=== PATIENT | female | born 1995 | race Caucasian/White ===

== ENCOUNTER 2016-12-10 20:39 | Emergency (ER) | payer OTHER ==
[~2016-12-10] VITALS: Ht 160 cm; Wt 59.2 kg
[2016-12-10 20:44] VITALS: TEMP 36.9; Ht 160 cm; Wt 59.2 kg
[2016-12-10] MEDS ORDERED: PEDICHW53 PO (21:09)
--- NOTE | 2016-12-10 21:55 | DIAGNOSTIC IMAGING REPORT ---
HEAD WITHOUT CONTRAST (CT) CLINICAL HISTORY: 21 years-old Female with visual changes nausea dizziness. Acute nausea TECHNIQUE: Multiple axial CT images of the head were obtained without contrast. A dose lowering technique was utilized adhering to the principles of ALARA. CT DOSE: 537.48 mGy.cm COMPARISON: None. FINDINGS: No acute intracranial hemorrhage, midline shift, mass, large territorial ischemia or abnormal extra-axial collection. The calvarium is intact. The paranasal sinuses, mastoid air cells, and middle ear cavities are clear. IMPRESSION: No acute intracranial abnormality. The above report was generated using voice recognition software. It may contain grammatical, syntax or spelling errors. Electronically signed by: Gonzalez Clemons M.D. 12/10/2016 9:54 PM Dictated Date/Time: 12/10/2016 9:52 PM
--- NOTE | 2016-12-10 22:09 | EMERGENCY ROOM VISIT NOTE ---
History First contact with patient: 21:04 Chief Complaint: DIZZY Stated Complaint: LIGHTHEADED,VISION CHANGE,DIZZY Nursing Triage Summary: PT states "I have been feeling weird since this am. during an exam this am, I had some changes in my vision" PT reports dizziness and nausea. History of Present Illness The patient is a 21 year old female who presents to the Emergency Room with complaints of feeling slightly lightheaded and visual changes that occurred this morning during an exam. The patient says that her vision temporarily turned approximately 90. This lasted a few seconds, then resolved. She describes a lightheaded sensation as feeling "spacey." She denies any headache. She did feel nauseated earlier today. She had a similar episode at dinner with feeling spacey. She denies any visual disturbances at that time. She otherwise has been feeling well. No recent illnesses. No new medications. No history of migraines. Review of Systems 10 system review performed and negative unless noted in HPI or below Past Medical/Surgical History Otherwise healthy Social History Smoking Status: Never Smoker Alcohol Use: occasionally Occupation Status: [employer] student Current/Historical Medications Scheduled Pediatric Multiple Vitamin W/ (Flintstones Gummies), 2 TABS PO DAILY Allergies Coded Allergies: No Known Allergies (Unverified , 12/10/16) Physical Exam Vital Signs Date Time Temp Pulse Resp B/P (MAP) Pulse Ox O2 Delivery O2 Flow Rate FiO2 12/10/16 22:44 69 16 110/70 98 Room Air 12/10/16 21:30 95 129/84 98 Room Air 96 123/78 80 132/78 12/10/16 20:44 36.9 74 18 132/72 99 Room Air Physical Exam VITALS: Vitals are noted on the nurse's note and reviewed by myself. Vital signs stable. GENERAL: 21-year-old female, in no acute distress, nondiaphoretic, well- developed well-nourished. SKIN: The skin was without rashes, erythema, edema, or bruising. HEAD: Normocephalic atraumatic. EYES: Pupils equal round and reactive to light and accommodation. Conjunctivae without injection, sclerae without icterus. Extraocular movements intact. MOUTH: Mucous membranes moist. NECK: Supple without nuchal rigidity. No lymphadenopathy. Cervical spine is nontender. No JVD. HEART: Regular rate and rhythm without murmurs gallops or rubs. LUNGS: Clear to auscultation bilaterally without wheezes, rales or rhonchi. No accessory muscle use. ABDOMEN: Positive bowel sounds x 4.Soft, nontender, without organomegaly. No guarding or rebound tenderness. MUSCULOSKELETAL: No muscle atrophy, erythema, or edema noted. . Strength 5/5 throughout. NEURO: Patient was alert and oriented to person place and time. Normal sensation to touch. No focal neurological deficits. Medical Decision & Procedures ER Provider Diagnostic Interpretation: CT of the head IMPRESSION: No acute intracranial abnormality. The above report was generated using voice recognition software. It may contain grammatical, syntax or spelling errors. Electronically signed by: Gonzalez Clemons M.D. 12/10/2016 9:54 PM Laboratory Results 12/10/16 22:25 Red Blood Count 4.58, Mean Corpuscular Volume 85.8, Mean Corpuscular Hemoglobin 28.8, Mean Corpuscular Hemoglobin Concent 33.6, Mean Platelet Volume 9.3, Neutrophils (%) (Auto) 62.6, Lymphocytes (%) (Auto) 24.4, Monocytes (%) (Auto) 9.9, Eosinophils (%) (Auto) 2.1, Basophils (%) (Auto) 0.4, Neutrophils # (Auto) 8.80, Lymphocytes # (Auto) 3.43, Monocytes # (Auto) 1.39, Eosinophils # (Auto) 0.30, Basophils # (Auto) 0.05 12/10/16 22:25 Test 12/10/16 22:25 White Blood Count 14.06 K/uL (4.8-10.8) Red Blood Count 4.58 M/uL (4.2-5.4) Hemoglobin 13.2 g/dL (12.0-16.0) Hematocrit 39.3 % (37-47) Mean Corpuscular Volume 85.8 fL (80-100) Mean Corpuscular Hemoglobin 28.8 pg (25-34) Mean Corpuscular Hemoglobin Concent 33.6 g/dl (32-36) Platelet Count 274 K/uL (130-400) Mean Platelet Volume 9.3 fL (7.4-10.4) Neutrophils (%) (Auto) 62.6 % Lymphocytes (%) (Auto) 24.4 % Monocytes (%) (Auto) 9.9 % Eosinophils (%) (Auto) 2.1 % Basophils (%) (Auto) 0.4 % Neutrophils # (Auto) 8.80 K/uL (1.4-6.5) Lymphocytes # (Auto) 3.43 K/uL (1.2-3.4) Monocytes # (Auto) 1.39 K/uL (0.11-0.59) Eosinophils # (Auto) 0.30 K/uL (0-0.5) Basophils # (Auto) 0.05 K/uL (0-0.2) RDW Standard Deviation 44.9 fL (36.4-46.3) RDW Coefficient of Variation 14.5 % (11.5-14.5) Immature Granulocyte % (Auto) 0.6 % Immature Granulocyte # (Auto) 0.09 K/uL (0.00-0.02) Anion Gap 7.0 mmol/L (3-11) Est Creatinine Clear Calc Drug Dose 87.6 ml/min Estimated GFR () 115.1 Estimated GFR (Non- 99.4 BUN/Creatinine Ratio 14.9 (10-20) Calcium Level 9.4 mg/dl (8.5-10.1) Total Bilirubin 0.3 mg/dl (0.2-1) Aspartate Amino Transf (AST/SGOT) 17 U/L (15-37) Alanine Aminotransferase (ALT/SGPT) 21 U/L (12-78) Alkaline Phosphatase 88 U/L (45-117) Total Protein 8.2 gm/dl (6.4-8.2) Albumin 3.9 gm/dl (3.4-5.0) Globulin 4.3 gm/dl (2.5-4.0) Albumin/Globulin Ratio 0.9 (0.9-2) ED Course The patient was seen and examined She refuses blood work An EKG was performed and reviewed A CT of the head was performed and reviewed The findings were discussed with the patient. She is now agreeable to blood work. The workup was discussed with the patient. She voiced understanding. Discharge instructions were reviewed, and the patient was discharged in good condition Medical Decision Differential includes: Atypical migraine, intracranial mass, bleed, multiple sclerosis, Lyme disease This patient is a 21-year-old female that presents to the emergency department with complaints of a spacey feeling in addition to visual changes that occurred earlier this morning. The patient refused blood work. A CT of the head was negative. EKG shows normal sinus rhythm. She does not appear dehydrated. She is not orthostatic. It is possible that her symptoms are related to an atypical migraine. The patient does have leukocytosis. She does not have any infectious symptoms such as fever, chills, cough, or urinary symptoms. She was instructed to have close follow-up with [facility]. She also was instructed to have blood work rechecked to make sure that the leukocytosis is resolving. If the symptoms persist, I recommended that patient follow-up with a neurologist. She is in agreement with this plan, and was discharged in good condition This chart was completed in part utilizing [employer] Speech Voice Recognition software. Attempts were made to minimize the grammatical errors, random word insertions, pronoun errors and incomplete sentences. Any formal questions or concerns about the content, text or information contained within the body of this dictation should be directly addressed to the provider for clarification. Impression Primary Impression: Dizziness Departure Information Dispostion Home / Self-Care Condition GOOD Referrals No Doctor, Assigned (PCP) Patient Instructions My [facility] Additional Instructions You were evaluated in the emergency department for changes in vision and a lightheaded sensation. No abnormalities were noted on the CAT scan. Your white blood cells were noted to be elevated. This should be rechecked sometime in the next week. Please follow-up with [facility] within the next 2-3 days If the symptoms persist, you should see a specialist such as a neurologist. Please return to the emergency department with any new or worsening symptoms.
[2016-12-10 22:39] LABS: BASO % 0.4 %; BASO ABS # 0.05 K/uL (0-0.2); COMPLETE YES; EOS % 2.1 %; HEMATOCRIT 39.3 % (37-47); IG% 0.6 %; LYMPH % 24.4 %; LYMPH ABS # 3.43 K/uL (1.2-3.4); MEAN CELL VOLUME 85.8 fL (80-100); MEAN CORPUSCULAR HEMOGLOBIN 28.8 pg (25-34); MEAN CORPUSCULAR HGB CONC 33.6 g/dl (32-36); MEAN PLATELET VOLUME 9.3 fL (7.4-10.4); MONO % 9.9 %; NEUT % 62.6 %; PLATELET COUNT 274 K/uL (130-400); RED BLOOD COUNT 4.58 M/uL (4.2-5.4); WHITE BLOOD COUNT 14.06 K/uL (4.8-10.8)
[2016-12-10 22:58] LABS: BUN/CREATININE RATIO 14.9 (10-20); CALCIUM 9.4 mg/dl (8.5-10.1); CREATININE 0.84 mg/dl (0.60-1.20); POTASSIUM 3.6 mmol/L (3.5-5.1)
[2016-12-10 23:01] LABS: ALB/GLOB RATIO 0.9 (0.9-2)
[2016-12-10 23:20] LABS: PREG INTERNAL NEGATIVE QC NEG CLEAR BACKGROUND; PREG INTERNAL POSITIVE QC POS CONTROL LINE
[2016-12-10 23:21] LABS: URINE APPEARANCE CLEAR (CLEAR); URINE BILIRUBIN NEG (NEG); URINE COLOR YELLOW; URINE EPITHELIAL CELL AUTO 20-30 /lpf (0-5); URINE NITRITE NEG (NEG); URINE PH 6.5 (4.5-7.5); URINE SPECIFIC GRAVITY 1.019 (1.000-1.030); UROBILINOGEN NEG (NEG); ZZUR CULT IF INDIC CLEAN CATCH NO
[2016-12-10 23:35] VITALS: BP 123/71; PULSE 77; O2SAT 98
[2016-12-10 23:36] LABS: MANUAL MICROSCOPIC REQUIRED? NO; REVIEW REQ? NO
== END 2016-12-10 23:35 | disposition home or self-care (01) ==
LOC: C.EDB 20:43 → EDBD 20:43 → C.EDA 23:35
DX: R42 Dizziness and giddiness (principal); H53.9 Unspecified visual disturbance